=== PATIENT | female | born 1990 | race Caucasian/White ===

== ENCOUNTER 2016-12-24 15:04 | Emergency (ER) | payer OTHER ==
[2016-12-24 15:56] VITALS: BP 105/64
--- NOTE | 2016-12-24 17:25 | UC ---
Skin Complaint HPI - HPI Summary HPI Summary: Patient has toenail fungus on left great toe, has tried OTC remedies without good results. - History of Current Complaint Chief Complaint: UCSkin Time Seen by Provider: 12/24/16 16:52 Stated Complaint: TOE NAIL COMPLAINT Hx Obtained From: Patient Hx Last Menstrual Period: dec 062016 ?: No Onset/Duration: Sudden Onset, Lasting Weeks Skin Exposure Onset/Duration: Weeks Ago Timing: Constant Onset Severity: Mild Current Severity: Mild Pain Intensity: 0 Pain Scale Used: 0-10 Numeric Location: Discrete Aggravating: Nothing Alleviating: Nothing - Allergy/Home Medications Allergies/Adverse Reactions: Allergies Allergy/AdvReac Type Severity Reaction Status Date / Time Clindamycin Allergy Anaphylatic Verified 12/24/16 15:57 Shock Home Medications: Home Medications Nuva Ring 12/24/16 [History] Review of Systems Constitutional: Negative Skin: Other - toenial fungus Eyes: Negative ENT: Negative Respiratory: Negative Cardiovascular: Negative Gastrointestinal: Negative Genitourinary: Negative Motor: Negative Neurovascular: Negative Musculoskeletal: Negative All Other Systems Reviewed And Are Negative: Yes PMH/Surg Hx/FS Hx/Imm Hx Previously Healthy: Yes Endocrine History Of: Denies: Diabetes, Thyroid Disease Cardiovascular History Of: Denies: Cardiac Disorders, Hypertension Respiratory History Of: Denies: COPD, Asthma GI/ History Of: Denies: Ulcer - Surgical History Surgery Procedure, Year, and Place: tonsils 1994 - Family History Known Family History: Negative: Cardiac Disease, Hypertension - Social History Alcohol Use: Occasionally Substance Use Type: None Smoking Status (MU): Light Every Day Tobacco Smoker Type: Cigarettes Length of Time of Smoking/Using Tobacco: 9 - Immunization History Most Recent Influenza Vaccination: july 2016 Physical Exam Triage Information Reviewed: Yes Appearance: Well-Appearing, No Pain Distress, Well-Nourished Vital Signs: Initial Vital Signs Temp 99.8 F 12/24/16 15:49 Pulse 66 12/24/16 15:49 Resp 16 12/24/16 15:49 BP 105/64 12/24/16 15:49 Pulse Ox 100 12/24/16 15:49 Vital Signs Reviewed: Yes Eye Exam: Normal Eyes: Positive: Conjunctiva Clear ENT Exam: Normal ENT: Positive: Normal ENT inspection, Hearing grossly normal, Pharynx normal, TMs normal Dental Exam: Normal Neck exam: Normal Neck: Positive: Supple, Nontender, No Lymphadenopathy Respiratory Exam: Normal Respiratory: Positive: Chest non-tender, Lungs clear, Normal breath sounds Cardiovascular Exam: Normal Cardiovascular: Positive: RRR, No Murmur, Pulses Normal Abdominal Exam: Normal Abdomen Description: Positive: Nontender, No Organomegaly, Soft Bowel Sounds: Positive: Present Musculoskeletal Exam: Normal Musculoskeletal: Positive: Strength Intact, ROM Intact, No Edema Neurological Exam: Normal Psychological Exam: Normal Skin: Positive: Other - onycomychosis on left great toe nail Course/Dx - Course Course Of Treatment: hx obtained, exam performed, prescription given - Diagnoses Provider Diagnoses: onychomycosis Discharge - Discharge Plan Condition: Stable Disposition: HOME Prescriptions: Ciclopirox [Ciclopirox Nail Lacquer] 8 % TOPICAL DAILY #1 bottle Patient Education Materials: Ciclopirox (On the skin) Additional Instructions: Give this treatment a try, keep feet clean and dry, air them out as much as possible. follow up with your PCP.
== END 2016-12-24 17:36 | disposition home or self-care (01) ==
LOC: UCEAST 15:04
DX: B35.1 Tinea unguium (principal); Z88.1 Allergy status to other antibiotic agents; F17.210 Nicotine dependence, cigarettes, uncomplicated
CPT/HCPCS: 99202; G0463